=== PATIENT | female | born 1980 | race Caucasian/White ===

== ENCOUNTER → 2016-10-17 | Day surgery (SDC) | payer OTHER ==
[2016-10-07 08:21] VITALS: Ht 162.6 cm; Wt 88.6 kg
[~2016-10-17] VITALS: Ht 162.6 cm; Wt 88.6 kg
[~2016-10-17] MED LIST: ATROPINE SULFATE 0.1 MG/ML 5ML SYR IV PRN; BUPIVACAINE/EPINEPHRINE 0.25% 1:200,000 30 ML VIAL ONE; CEFAZOLIN 2000 MG/60 ML D5W IV SCH; CHECK SCOPOLAMINE PATCH PLACEMENT SCH; CHOL1000 PO; CYAN10005 PO; DEXAMETHASONE SOD INJ 4 MG/ML VIAL ONE; EpHEDrine SULFATE INJ 50 MG/ML AMP IV PRN; EpINEphrine INJ 1MG/ML AMP 1 MG/ML AMP ONE; FENTANYL CITRATE INJ 50 MCG/1 ML 2 ML VIAL IV PRN; FENTANYL CITRATE INJ 50 MCG/1 ML 2 ML VIAL ONE; FLUMAZENIL 0.1 MG/1 ML 10 ML VIAL IV PRN; HYDR-5688 PO; HYDROCODONE/ACETAMOPHEN 5/325MG TAB PO PRN; HYDROmorphone INJ 2 MG/ML SYR/VIAL IV PRN; LABETALOL HCL IV 5 MG/ML 20ML IV PRN; LACTATED RINGER'S 1000ML 1,000 ML IV SCH; LIDOCAINE HCL 2% 2 ML VIAL (20MG/ML) ONE; LIDOCAINE/EPINEPHRINE 1% INJ 50 ML VIAL ONE; MEPERIDINE HCL 25 MG/ML CARP IV PRN; MIDAZOLAM HCL 1 MG/ML 2ML VIAL ONE; MISCCAP; MULT-506 PO; MoRPHine SULFATE 2 MG/ML CARP IV PRN; MoRPHine SULFATE 4 MG/ML 1 ML CARP\\VIAL IV PRN; NALOXONE HCL 0.4 MG/1 ML VIAL/CARP IV PRN; ONDANSETRON INJ 2 MG/ML 2 ML VIAL IV PRN; ONDANSETRON INJ 2 MG/ML 2 ML VIAL ONE; PHENYLEPHRINE 100MCG/ML 5ML SYR IV PRN; PROPOFOL IV EMULSION 10 MG/ML 20 ML VIAL IV ONE; ROPIVACAINE 0.5% 5 MG/ML 30 ML VIAL ONE; SCOPOLAMINE 1.5 MG TDSY TD ONE; SODIUM CHLORIDE 0.9% 1000ML 1,000 ML IV SCH
--- NOTE | 2016-10-17 09:27 | History & Physical Bridge Note ---
H&P Re-Evaluation Bridge Note: I have examined the patient, reviewed the History & Physical and in the interval since the performance of the History & Physical I have noted the following changes of clinical significance: No changes noted
--- NOTE | 2016-10-17 15:12 | [facility] Post Operative Brief Note ---
Immediate Operative Summary Operative Date Oct 17, 2016. Pre-Operative Diagnosis Right Shoulder Impingement Syndrome Post-Operative Diagnosis Same, partial thickness cuff tear Procedure(s) Performed shouldre arthroscopy and subacromial decompression Surgeon Dr. Huff Code Inspector Surgeon(s) Claus Villaseñor, Fellow Estimated Blood Loss minimal Findings bursitis, partial cuff fraying Specimens 0 Drains 0 Anesthesia LMA, interscalene block Complication(s) None Disposition Recovery Room / PACU
--- NOTE | 2016-10-17 15:25 | Discharge Instructions-SurgCtr ---
Discharge Instructions Visit Reason for Visit: Right Shoulder Impingement Syndrome Discharge Discharge Diagnosis / Problem: Status post right shoulder subacromial decompresion Discharge Goals Goal(s): Decrease discomfort, Improve function, Increase independence Activity Recommendations Activity Limitations: per Instructions/Follow-up section Anesthesia . Post Anesthesia Instructions: If you have had General Anesthesia or IV Sedation: * Do not drive today. * Resume driving when surgeon permits. * Do not make important decisions or sign legal documents today. * Call surgeon for: 1. Temperature elevations greater than 101 degrees F. 2. Uncontrollable pain. 3. Excessive bleeding. 4. Persistent nausea and vomiting. 5. Medication intolerance (nausea, vomiting or rash). * For nausea and vomiting use only clear liquids such as: tea, soda, bouillon until nausea subsides, then gradually increase diet as tolerated. * If you have any concerns or questions, call your surgeon's office. If physician is unavailable and it is an emergency, call 911 or go to the nearest emergency room. . Instructions / Follow-Up Instructions / Follow-Up The following are instructions to follow after "Shoulder Surgery" including, Acromioplasty, Rotator Cuff Repair and Instability Surgery ACTIVITY RECOMMENDATIONS: * Minimize activity after surgery. * No excessive walking, jogging, sports or laboring. * Return to activity is individualized depending on the patient and type of surgery. * Driving is not permitted until at least your first post operative visit. Please ask your doctor when it is safe to resume driving. * Expect increased discomfort with increased activity. Continue to ice the shoulder as needed. SCHOOL/WORK RECOMMENDATIONS: * You may return to sedentary work or school when you are feeling more comfortable. This is usually 3-7 days after surgery. MEDICATIONS: * You will have a prescription for pain medication and an anti-inflammatory medication after surgery. * Use the pain medication for severe pain and the anti-inflammatory for less severe pain. Once the pain medication has run out, try to use the anti-inflammatory medication. If this is not effective, contact the office for assistance. * The pain medication may cause nausea, constipation and drowsiness. You should see how they affect you before driving or similar activity. * The anti-inflammatory medication may cause stomach upset and bleeding. If this occurs let your doctor know immediately . * Take a stool softener like Colace or a laxative like Senokot to prevent constipation. DIET: * Resume previous diet. SPECIAL CARE: ICE: You have the option of an ice cooler, gel packs or ice bags. * If you have an ice cooler, refer to the instructions for that device. The ice cooler may be used continuously. * If you do not have an ice cooler, you will need to use ice bags or gel packs. Do not apply ice directly to the skin. Use a thin dressing or sariah shirt between the skin and ice bag. Apply ice for 20-30 minutes and repeat every 2-4 hours. This is especially important for the first 7-10 days after surgery. Once the pain improves, use ice as needed. ELEVATION: * You may be more comfortable sleeping in an upright position. Use the sling to elevate your arm. DRESSING: * Your dressing will be changed at your first therapy appointment approximately 4-5 days after surgery. Band-aids, tape strips or gauze may be applied. You may then change your dressing daily. * Reapply dressing followed by the EBIce cooling pad (if chosen) and then the sling. * Always wash your hands prior to touching the incision area. * Once the stitches are removed, you may leave the wound open to air or cover with gauze. * Expect some bloody drainage for the first few days after surgery. * Leave the tape strips, if present, in place for 5-7 days. * Band-aids and gauze may be changed daily. * There may be a gauze pad in your armpit area. This can be changed daily or replaced by a dry washcloth. SLING/BRACE: * You will need to use a sling or brace after surgery. The length of time the sling is used is dependent upon the type of surgery performed. * Arthroscopic Acromioplasty requires use of the sling for 2-4 weeks for comfort. * Labral procedures and Rotator Cuff Repairs require use of the sling for a longer period of time. Please check with your doctor prior to discontinuing the sling. BATHING: * You may shower or sponge-bathe immediately after surgery. The post operative shoulder dressing is mostly water-tight. You may shower right over this dressing, but be reasonably careful not to get the gauze or incision wet. * Once the dressing has been changed on the fourth or fifth day after surgery, you may shower and get the incision wet. * Wash with regular soap and water. * Do not bathe (submerge the incision), soak, swim or use a hot tub until the incision is completely healed over with normal skin and the doctor has given the OK to proceed. * There is no need to apply any ointments, powders or salves to your incision. * Do not apply alcohol or hydrogen peroxide directly to the incision. * Diluted peroxide (50:50 mixture with sterile saline) may be used to clean dried blood from around the incision area. THERAPY: * You will begin therapy four or five days after surgery. * Organized therapy with the therapist is important for the first 2-4 months after surgery depending on the type of procedure. During that time you will attend therapy 1-3 times per week. * You will also need to do daily exercises for range of motion and strength as instructed. * Patients who have a Capsular Shift Procedure will need to abide by temporary range of motion limitations. * Patients having Rotator Cuff Surgery are not allowed to actively lift their arms until 4-6 weeks after surgery. * Please check with your doctor regarding appropriate motion restrictions. FOLLOW UP VISIT: * If not already scheduled, please call the office at to schedule a follow-up appointment for 10 days after surgery and monthly thereafter. * Follow up with Dr. Huff on 04/28/17 at 9.15 am * Follow up with Physical Therapy on 10/22/16 at 10.30 am Diet Recommendations Home Diet: no limitations, resume previous diet Procedures Procedures Performed: shoulder arthroscopy and subacromial decompression Pending Studies Studies pending at discharge: no Medical Emergencies . Who to Call and When: Medical Emergencies: If at any time you feel your situation is an emergency, please call 911 immediately. . Non-Emergent Contact Non-Emergency issues call your: Surgeon Call Non-Emergent contact if: you have a fever, your pain is not controlled, wound has increased drainage . . "Provider Documentation" section prepared by Russell Rosado.
--- NOTE | 2016-10-17 15:28 | [facility] Operative Report ---
Operative Report Operative Date Oct 17, 2016. Pre-Operative Diagnosis Right Shoulder Impingement Syndrome Post-Operative Diagnosis Same, partial thickness cuff tear Procedure(s) Performed shoulder arthroscopy and subacromial decompression Surgeon Dr. Huff Button Sewing Machine Operator Surgeon(s) Claus Villaseñor, Fellow Estimated Blood Loss minimal Specimens 0 Complication(s) None Disposition PCU I attest to the content of the Intraoperative Record and any orders documented therein. Any exceptions are noted below.
--- NOTE | 2016-10-17 16:19 | OPERATIVE REPORT ---
DATE OF OPERATION: 10/17/2016 PREOPERATIVE DIAGNOSIS: Right shoulder impingement syndrome. POSTOPERATIVE DIAGNOSES: Right shoulder impingement syndrome, subacromial bursitis, partial thickness undersurface rotator cuff. SURGEON: Dr. Huff. HOP FARM WORKER: Russell Hamlin MD fellow. No PA available. ANESTHESIA: Laryngeal mask with interscalene block. INDICATIONS OF PROCEDURE: The patient is a 36-year-old female with right shoulder pain refractory to nonsurgical methods of management. Her MRI does not show rotator cuff tear. She has responded favorably although partially to a subacromial injection. She had diagnosed with impingement syndrome and is taken to surgery for arthroscopic decompression. PROCEDURE IN DETAIL: Informed consent was obtained. The patient identified as Maria Luisa Phillips. She identified the operative site as the right shoulder. I marked with my initials. A preop surgical time out performed. A preop dose of IV antibiotics was given. She was positioned supine on the operating room table. Laryngeal mask anesthetic and interscalene block were given. She was positioned beach chair. The neck was held in neutral alignment. The torso was secured to the table. Bony prominences were inspected and padded. Bump was placed beneath the heels. Kidney rests were utilized. The tenant body positioner and Trimano arm pepe were utilized. The right upper extremity was prepped and draped in usual sterile fashion. DVT prophylaxis intraoperatively with foot pumps, postoperatively with early mobility. A 1% lidocaine with epinephrine, approximately 10 mL was injected into the subacromial space preoperatively. Examination under anesthesia showed that the shoulder was not dislocatable and that there was full range of motion, 170 degrees of forward elevation, 60-70 degrees of external rotation and unrestricted internal rotation to about 45 degrees in mid abduction. Posterior soft spot viewing portal was established followed by anterior mid glenoid working portal using the outside-in technique. Diagnostic arthroscopy was performed. There was minor fraying at the anterosuperior labrum with minimal detachment. There was no SLAP lesion or Bankart lesion. The articular surface of the glenoid and humeral head were normal. The labrum was intact circumferentially. There were no loose bodies. The biceps was normal. The anterior capsule and posterior capsule plus ligaments were normal. Axillary pouch was unremarkable. There was no rotator cuff tear. The bare area was normal. The scope was placed anterior to visualize the posterior structures. The biceps was pulled into the joint for visualization. The synovium on the undersurface of the supraspinatus was debrided. There was minimal a millimeter or 2 of fraying of the supraspinatus tendon. This was at the very leading edge of the tendon for about 0.5 cm. I debrided the synovium and found that the remainder of the tendon was intact and the frayed portion was debrided. The scope was placed in subacromial space and accessory lateral portal was created. There was severe bursitis noted and a thorough bursectomy was performed. The anterior and lateral aspects of the acromion were identified and the coracoacromial ligament was identified and released. The undersurface of the acromion was denuded of soft tissue. The anterior 1.5 cm was then beveled with a kamini using a modified cutting block technique, removing about 3 to 4 mm of anterior bone. A bur was used to smooth this from back to front and then from side to side, removing some lateral bone as well. On the bursal side, the rotator cuff was completely intact. The shaver was run through the shoulder to pickling operator loose debris, bone fragments, bone dust and bursa. The AC joint was identified but not violated. The portals were closed with 4-0 nylon, soft sterile dressing was applied. She was awakened from anesthesia without difficulty and taken to recovery room in stable condition. An ABD was placed into her armpit and simple sling was utilized. There were no specimens or complications. Counts were correct at the end of the case. Blood loss was minimal. At the conclusion of the operation, I spoke to the patient's mother and informed her of my findings. Postoperative instructions were given. She can be rehabilitated according to the arthroscopic acromioplasty protocol. Her partial thickness rotator cuff tear was 2 mm thick by 5 mm long at the leading edge of the supraspinatus. I attest to the content of the Intraoperative Record and any orders documented therein. Any exceptio ns are noted below.
[2016-10-17 16:30] VITALS: TEMP 37.1
[2016-10-17 17:29] VITALS: BP 114/74; PULSE 69; O2SAT 96
--- NOTE | 2016-10-17 17:32 | Anesthesia Progress Nt - [facility] ---
Anesthesia Post Op Note Date & Time Oct 17, 2016 at 17:32 Vital Signs Pain Intensity: 0 Vital Signs Past 12 Hours Date Time Temp Pulse Resp B/P Pulse Ox O2 Delivery O2 Flow Rate FiO2 10/17/16 17:29 69 16 114/74 96 Room Air 10/17/16 16:30 37.1 63 14 99/59 96 Room Air 10/17/16 16:15 71 17 96 10/17/16 16:15 73 17 10/17/16 16:13 99/59 10/17/16 16:10 72 10 10/17/16 16:10 37.0 78 14 99/59 95 Room Air 10/17/16 16:10 71 10 96 10/17/16 16:09 95/41 10/17/16 16:05 80 20 96 10/17/16 16:05 80 20 10/17/16 16:03 105/61 10/17/16 16:00 55 22 100 10/17/16 16:00 53 22 10/17/16 15:58 100/61 10/17/16 15:55 53 17 100 10/17/16 15:55 54 17 10/17/16 15:53 123/70 10/17/16 15:50 51 16 100 10/17/16 15:50 51 16 10/17/16 15:48 122/65 10/17/16 15:45 59 21 10/17/16 15:45 61 21 100 10/17/16 15:44 117/70 10/17/16 15:40 58 18 10/17/16 15:40 58 18 100 10/17/16 15:39 111/52 10/17/16 15:38 56 17 10/17/16 15:38 56 17 100 10/17/16 15:33 71 19 125/53 100 10/17/16 15:33 73 19 10/17/16 15:29 106/56 10/17/16 15:28 69 100 10/17/16 15:28 69 10/17/16 15:24 118/60 10/17/16 15:23 89 19 99 10/17/16 15:23 89 19 10/17/16 15:21 36.5 68 16 128/61 100 Diffusion Mask 10/17/16 15:19 128/61 10/17/16 13:38 0 10/17/16 13:38 0 10/17/16 13:37 0 10/17/16 13:37 0 10/17/16 13:33 102/63 10/17/16 13:32 88 23 97 10/17/16 13:32 86 23 10/17/16 13:29 101/60 10/17/16 13:27 88 20 10/17/16 13:27 87 20 96 10/17/16 13:24 88/57 10/17/16 13:22 92 19 97 10/17/16 13:22 92 19 10/17/16 13:18 94/50 10/17/16 13:17 91 18 10/17/16 13:17 92 18 96 10/17/16 13:13 92/57 10/17/16 13:12 93 10 96 10/17/16 13:12 91 10 10/17/16 13:08 85/55 10/17/16 13:07 84 20 96 10/17/16 13:07 85 20 10/17/16 13:04 101/55 10/17/16 13:02 85 14 10/17/16 13:02 83 14 95 10/17/16 12:59 117/55 10/17/16 12:57 91 18 97 10/17/16 12:57 91 18 10/17/16 12:57 85 23 126/40 94 Nasal Cannula 4 10/17/16 12:56 126/40 10/17/16 12:52 102 10/17/16 12:47 86 10/17/16 12:42 91 10/17/16 12:37 93 10/17/16 12:32 79 10/17/16 12:27 63 10/17/16 12:22 64 10/17/16 12:17 58 10/17/16 12:12 75 10/17/16 12:07 90 10/17/16 12:02 79 10/17/16 11:57 78 10/17/16 11:52 81 10/17/16 11:47 81 10/17/16 11:42 77 10/17/16 11:37 76 10/17/16 11:32 77 10/17/16 11:27 80 10/17/16 11:22 81 10/17/16 11:17 72 10/17/16 08:55 36.8 82 16 112/75 95 Room Air Notes Mental Status: alert / awake / arousable, participated in evaluation Pt Amnestic to Procedure: Yes Nausea / Vomiting: adequately controlled Pain: adequately controlled Airway Patency, RR, SpO2: stable & adequate BP & HR: stable & adequate Hydration State: stable & adequate Anesthetic Complications: no major complications apparent
== END | disposition home or self-care (01) ==
LOC: X.SURG 08:38
PROVIDERS: ATTEND Physical Medicine & Rehabilitation Sports Medicine
DX: M75.41 Impingement syndrome of right shoulder (principal); M75.81 Other shoulder lesions, right shoulder; M19.91 Primary osteoarthritis, unspecified site; K85.92 Acute pancreatitis with infected necrosis, unspecified; Z98.890 Other specified postprocedural states

== ENCOUNTER → 2016-10-29 | Outpatient (CLI) | payer OTHER ==
[~2016-10-29] MED LIST changes: -ATROPINE SULFATE 0.1 MG/ML 5ML SYR IV PRN; -BUPIVACAINE/EPINEPHRINE 0.25% 1:200,000 30 ML VIAL ONE; -CEFAZOLIN 2000 MG/60 ML D5W IV SCH; -CHECK SCOPOLAMINE PATCH PLACEMENT SCH; -DEXAMETHASONE SOD INJ 4 MG/ML VIAL ONE; -EpHEDrine SULFATE INJ 50 MG/ML AMP IV PRN; -EpINEphrine INJ 1MG/ML AMP 1 MG/ML AMP ONE; -FENTANYL CITRATE INJ 50 MCG/1 ML 2 ML VIAL IV PRN; -FENTANYL CITRATE INJ 50 MCG/1 ML 2 ML VIAL ONE; -FLUMAZENIL 0.1 MG/1 ML 10 ML VIAL IV PRN; -HYDROCODONE/ACETAMOPHEN 5/325MG TAB PO PRN; -HYDROmorphone INJ 2 MG/ML SYR/VIAL IV PRN; -LABETALOL HCL IV 5 MG/ML 20ML IV PRN; -LACTATED RINGER'S 1000ML 1,000 ML IV SCH; -LIDOCAINE HCL 2% 2 ML VIAL (20MG/ML) ONE; -LIDOCAINE/EPINEPHRINE 1% INJ 50 ML VIAL ONE; -MEPERIDINE HCL 25 MG/ML CARP IV PRN; -MIDAZOLAM HCL 1 MG/ML 2ML VIAL ONE; -MoRPHine SULFATE 2 MG/ML CARP IV PRN; -MoRPHine SULFATE 4 MG/ML 1 ML CARP\\VIAL IV PRN; -NALOXONE HCL 0.4 MG/1 ML VIAL/CARP IV PRN; -ONDANSETRON INJ 2 MG/ML 2 ML VIAL IV PRN; -ONDANSETRON INJ 2 MG/ML 2 ML VIAL ONE; -PHENYLEPHRINE 100MCG/ML 5ML SYR IV PRN; -PROPOFOL IV EMULSION 10 MG/ML 20 ML VIAL IV ONE; -ROPIVACAINE 0.5% 5 MG/ML 30 ML VIAL ONE; -SCOPOLAMINE 1.5 MG TDSY TD ONE; -SODIUM CHLORIDE 0.9% 1000ML 1,000 ML IV SCH
== END | disposition home or self-care (01) ==
LOC: C.RDSM 09:17
PROVIDERS: ATTEND Physical Medicine & Rehabilitation Sports Medicine
DX: M21.821 Other specified acquired deformities of right upper arm (principal)